=== PATIENT | female | born 1995 | race American Indian/Alaskan Native ===

== ENCOUNTER 2017-05-25 16:33 | Outpatient (CLI) | payer MEDICAID ==
[2017-05-25] MEDS ORDERED: LACTATED RINGERS 500 ML IV ONE (16:55)
[2017-05-25 17:14] VITALS: BP 106/55
[2017-05-25 17:59] LABS: Bilirubin,Urine NEG (Negative); Blood,Urine NEG (Negative); Ketones,Urine NEG (Negative); Leukocyte Esterase,Urine LG (Negative); Mucus,Urine FEW /HPF; Nitrite,Urine NEG (Negative); Protein,Urine <15 mg/dL mg/dL (Negative); Urobilinogen,Urine < 2.0 mg/dL (<2.0)
--- NOTE | 2017-05-26 07:50 | Ultrasound Report ---
OB ULTRASOUND History: well-being Technique: Transabdominal ultrasound with Doppler interrogation. Gestation: Single Position: Breech Amniotic Fluid: Within normal limits Placenta: Anterior Placental Grade: 1 Heart Rate: 156 BPM Cervical length: 3.3 cm (Normal > 3 cm) NEUROANATOMY VISUALIZED: Choroid Plexus Cisterna Magnum Cerebellum Lateral Ventricle ANATOMY VISUALIZED: Stomach Bladder 4 Chamber Heart Heart 3 Vessel Cord Abd. Cord Insert SPINE VISUALIZED: Limited spine due to position The following are not demonstrated due to maternal body habitus or lie: Spine, kidneys, diaphragm. BPD: 5.1 cm = 21 w 3 d HC: 19.0 cm = 21 w 2 d AC: 17.0 cm = 22 w 0 d FL: 4.1 cm = 23 w 0 d HC/AC Ratio: 1.12 Cephalic Index: 83.0 Estimated Weight: 502 grams. 66 percentile. Clinical age = 22 w 0 d EDC: 09/28/17 US Gest. Age = 22 w 0 d EDC: 09/28/17
== END 2017-05-25 18:20 | disposition home or self-care (01) ==
LOC: TRG 16:33
PROVIDERS: ATTEND Obstetrics & Gynecology
DX: O32.1XX0 Maternal care for breech presentation, not applicable or unspecified (principal); O47.02 False labor before 37 completed weeks of gestation, second trimester; Z3A.22 22 weeks gestation of pregnancy
CPT/HCPCS: 59025; 76805; 81001